=== PATIENT | female | born 1980 | race Caucasian/White ===

== ENCOUNTER 2017-09-03 06:42 | Day surgery (SDC) | payer MEDICAID, SELFPAY ==
[2017-09-02 17:08] LABS: Hematocrit 31.4 % (37-47); Hemoglobin 8.9 g/dl (12.0-15.0); Mean Corp Hgb Conc 28.3 g/gl (32-36); Mean Corpuscular Hgb 21.8 pg (27.0-32.0); Mean Corpuscular Volume 76.8 fL (81-99); Mean Platelet Vol. 10.4 fl (6.2-12.0); Platelet Count 282 K/mm3 (150-450); RBC Distribution Width CV 18.5 % (11.6-14.6); RBC Distribution Width SD 49.9 fl (35.1-43.9); Red Blood Count 4.09 M/mm3 (4.2-5.4); White Blood Count 6.3 K/mm3 (4.4-11.0)
[2017-09-02 17:15] LABS: Scan Indicated on CBC? Y/N NO
[2017-09-02 17:16] LABS: International Normalized Ratio 1.1
[2017-09-03] VITALS (8 sets, daily range): BP systolic 122–148; BP diastolic 66–89; PULSE 62–87; RESP 16–20; TEMP 36.6–37.1; O2SAT 96–100; BMI 39.1
--- NOTE | 2017-09-03 | FALS_PTH ---
PATIENT: JOSLYN MENON LOC: [facility] – [place] U#:[id number] AGE/SX: 37/F ROOM: RE09/03/[address]: Dr. Juan Luis Crane MD : 1980 BED: DIS: 09/03/2017 SPEC #: [id number] RECD: 09/03/17 14:08 STATUS: TAMMIE DON #: [id number] JOSE: 09/03/17 00:[address]: Juan Luis Crane DEPT: SURGICAL PATHOLOGY RECD BY: Sam Darden ENTERED: 09/03/17 14:09 SP TYPE: FALL TUBES OTHR DR: No Primary Care Phys Tissues: A - Fallopian tube B - Right ovary C - Endometrium, NOS Procedures: Surgery Specimen Level II Surgery Specimen Level IV HEADER OPERATION: Hysteroscopy, D&C ester PRE-OP DIAGNOSIS: Excessive and frequent menstruation POST-OP DIAGNOSIS: Right ovarian cyst, dysmenorrhea, pelvic adhesions TISSUE SUBMITTED: A. Left fallopian tube, B. Right ovary, C. Endometrial curettings MICROSCOPIC DIAGNOSIS A. Left fallopian tube, salpingectomy: No pathologic change. B. Right ovarian cyst, excision: Endometriosis of ovary and portions of adherent fallopian tube. C. Endometrium, curettings: Secretory endometrium. AM:karen 09/04/17 COMMENT Case has been reviewed in consultation with Dr. Shelton who concurs with the above diagnosis. IDC:DANG MICROSCOPIC DESCRIPTION Slides are reviewed. GROSS DESCRIPTION A. Received in fixative is one container labeled with the patient's name and designated left fallopian tube. The specimen consists of a fallopian tube measuring 5 cm in length and 0.5 cm in diameter. Fimbria appear normal. Section did not reveal any mass lesion. Sandwich Wrapper sections are submitted in 1 cassette. B. Received in fixative is one container labeled with the patient's name and designated right ovary cyst. The specimen consists of multiple pieces consistent with ovary in multiple pieces measuring in aggregate 4 x 4 x 2 cm. One other piece consists of tubular piece of tissue, which may represent portion of fallopian tube. The entire specimen is submitted in 5 cassettes. The tubular portion of tissue is present in cassette 4. C. Received in fixative is one container labeled with the patient's name and designated endometrial curettings. The specimen consists of multiple fragments of pink hemorrhagic soft tissue in aggregate 5 x 3 x 0.6 cm. The entire specimen is submitted in 4 cassettes. DANG:karen 09/03/17 TC:5 CPT: 87828 x3
[2017-09-03] MEDS: Bupivacaine 0.25% 30 ML Vial (06:49)
[2017-09-03 07:06] LABS: Internal QC Validated? YES +Cl - CLEAR BKGD; Pregnancy, Urine Negative Negative
--- NOTE | 2017-09-03 07:41 | PCM.DC ---
You will use the following diet at home:: No restrictions Your food should be the consistency of: Regular Discharge Activity: Return to Normal Activity, May Not Drive, May not drive while taking narcotic pain medications., May Shower Return to work on:: 09/11/17 May shower in (days): 0 May resume sexual activity in: 4 weeks Call your doctor if your incision/area has: Sudden Increased Bleeding, Increased Pain/ Swelling, Increased Redness, Foul Smelling Discharge, Swelling at the incision site Call your doctor if you observe: Fever of 101 or Higher, Inability to urinate, Inability to have a bowel movement, Using more than one pad per hour, Shortness of breath, Chest pain, Calf discomfort, Uncontrolled pain Remove Dressing in (days):: 2 Cleanse incision/area with: Soap & Water Allergies/Adverse Reactions: Allergies acetaminophen [From Darvocet-N] Allergy (Verified 09/02/17 15:42) Itching propoxyphene [From Darvocet-N] Allergy (Verified 09/02/17 15:42) Itching Medications to take at Discharge Cyclobenzaprine [Flexeril] 5 mg PO TID PRN PRN 09/02/17 Ibuprofen 800 mg PO Q8H PRN PRN #30 tab 09/03/17 Oxycodone [Oxyir] 5 mg PO Q4H PRN PRN 7 Days #28 tab 09/03/17 The following prescriptions were given: Oxycodone [Oxyir] 5 mg PO Q4H PRN PRN 7 Days #28 tab PRN Reason: Severe Pain (6-10/10) Ibuprofen 800 mg PO Q8H PRN PRN #30 tab PRN Reason: Pain Primary Care Physician: Care Physician,No Primary [Primary Care Provider] - Please Follow Up With: Juan Luis Crane MD When: one week Proposed Discharge Date: 09/03/17
--- NOTE | 2017-09-03 07:56 | OP.PCM_ITS ---
Problem List (1) Secondary dysmenorrhea Status: Chronic (2) Adnexal cyst Status: Chronic Report of Operation Date of Procedure: 09/03/17 Pre-Operative Diagnosis: Severe dysmenorrhea, pelvic pain, adnexal cyst Post-Operative Diagnosis: same Surgery/Procedure Performed:: Laparoscopic bilateral salpingectomy, Hysteroscopy , D and C, Endometrial Ablation Description of Surgical Findings:: Normal appearing cervix. Uterus normal size with numerous adhesions of anterior surface of lower uterine segment to anterior abdominal wall. No posterior adhesions. Endometrial lining with no polyps but was significantly thickened. Left fallopian tube s/p ligation. Left ovary normal. Right ovary with endometriotic/hemorrhagic cyst densely adherent to right sidewall. Normal appearing liver and stomach. Appendix not visualized. Uterine length for Suly ablation 5.5 cm. environmental safety specialist: Kathy Deluca Type of Anesthesia:: General Anesthesiologist: Moose Thomas Special Medications: none Specimen's removed: Left fallopian tube, right ovary, endometrial curretings Drains: none Estimated Blood Loss (mL): 50cc Fluids Replaced: 1500cc LR Description of Procedure: Pauline was taken to the OR with IV running. She was given two grams of Cefotetan intravenously prior to the procedure for surgical prophylaxis. General anesthesia was then introduced without complication. A vides catheter was placed. She was prepped and draped in the dorsal lithotomy position. A uterine manipulator was then placed. Attention was then directed to the abdomen where a 5 mm vertical incision was made in the lower base of the umbilicus. The underlying subcutaneous tissue was dissected down to the level of fascia using a Marce clamp. The abdominal wall was then elevated and a Veress needle was placed through the umbilical defect into the abdomen. The abdomen was then inflated to 15 Torr with CO2 gas. The Veress needle was then removed and replaced with a 5mm laparoscopic trocar and sleeve. The trocar was removed and replaced with the laparoscope. Two lateral side ports were then placed one on the left and one on the right side at the level of the umbilicus lateral to the inferior epigastric vessels. A survey of the abdomen and pelvis was then performed with the laparoscope. Findings were as mentioned above. The adhesions between the omentum and the anterior abdominal wall were then dissected close to the abdominal wall with the Ligasure device. The omental adhesion to the posterior cul de sac was dissected with the Ligasure. The left fallopian tube was then identified, grasped at the fimbriated end and the mesosalpinx dissected from the distal end of the tube to the cornua of the uterus. The tube was then amputated and removed from the right sideport. Attention was then directed to the right adnexa. Adhesions of the omentum and bowel were dissected off the right adnexa using careful dissection. The right ureter was identified well below the level of the right ovary. The adhesions of the right ovary to the sidewall were then dissected The right infidibulopelvic ligament was then cauterized and cut. The right uteroovarian ligament was then cauterized and cut. The ovary was then dissected free of the sidewall. The ovary was then placed in an endocatch and removed. Some of the dense adhesions on the left anterior surface of the uterus were then cauterized and cut. Irrigation was then used. Kavin was then placed over the pedicle sites. Hemostasis was assured. The lateral side ports were then removed, the gas evacuated and then the umbilical port was removed. The skin incisions were closed with 4-0 Monocryl and injected with 0.25% Marcaine. Attention was then directed to the vagina. The uterine manipulator was removed. The cervix was then dilated to 22 [place]. The hysteroscope was then placed into the uterine cavity and findings were as above. A sharp curettage was then performed. The Suly device was put through it's preoperative checklist. The device was then placed and deployed. The device completed it's checks and then performed an ablation for 120 seconds. The hysteroscope was then replaced and findings were typical after an ablation. All instruments were then removed from the vagina. The patient was then reversed from anesthesia and taken to the recovery room in stable condition. Sponge, needle, and instrument counts were correct. Grafts/Implants Used: none - Complications none - Admit VTE Documentation VTE Present on Admission: No VTE Mechan Device Prophylaxis: [facility] [place] VTE Pharm Prophylaxis ordered?: No
[2017-09-03] MEDS: oxyCODONE 5 MG Tablet PO (12:59)
== END 2017-09-03 14:15 | disposition home or self-care (01) ==
LOC: SDC 06:42 → AC 06:43
PROVIDERS: Visit Provider Obstetrics & Gynecology
PROC: 0U5B8ZZ Destruction of Endometrium, Via Natural or Artificial Opening Endoscopic (ICD-10-PCS; CPT 58558; 2017-09-03 07:15)
PROC: (CPT 58563; 2017-09-03 07:15)
DX: N94.5 Secondary dysmenorrhea (principal); N92.0 Excessive and frequent menstruation with regular cycle; N80.1 Endometriosis of ovary; N83.201 Unspecified ovarian cyst, right side; F17.200 Nicotine dependence, unspecified, uncomplicated; Z79.899 Other long term (current) drug therapy; Z86.2 Personal history of diseases of the blood and blood-forming organs and certain disorders involving the immune mechanism; Z98.51 Tubal ligation status
CPT/HCPCS: 58563; 58661; 36415; 81025; 85027; 85610; 85730; 86850; 86900; 88302; 88305; J7120